=== PATIENT | female | born 1955 | race Caucasian/White ===

== ENCOUNTER 2023-11-18 16:03 | Emergency (ER) | payer OTHER ==
[2023-11-18 16:24] VITALS: BP 130/64; PULSE 60; RESP 18; TEMP 98.6; BMI 47.8
[2023-11-18] MEDS ORDERED: ACETAMINOPHEN 500 MG TABLET (FP) ONE (16:30)
[2023-11-18] MEDS: ACETAMINOPHEN 500 MG TABLET (FP) PO ONE (16:36)
== END 2023-11-18 18:30 | disposition home or self-care (01) ==
LOC: FER 16:03
DX: S89.92XA Unspecified injury of left lower leg, initial encounter (principal); X58.XXXA Exposure to other specified factors, initial encounter
CPT/HCPCS: 73562-TC-LT-FY; 99283-25